=== PATIENT | male | born 2000 | race Hispanic/Latino ===

== ENCOUNTER 2024-11-08 19:04 | Emergency (ER) | payer SELFPAY ==
[~2024-11-08] VITALS: Ht 175.3 cm; Wt 136.1 kg
[2024-11-08 20:09] VITALS: PULSE 85; RESP 20; TEMP 98.5; O2SAT 100
[2024-11-08] MEDS: HYDROCODONE/APAP 5MG-325MG TAB PO ONE (21:07)
[2024-11-08] MEDS ORDERED: AMOXICILLIN500 MG PO (21:11)
== END 2024-11-08 21:18 | disposition home or self-care (01) ==
LOC: ER 20:57
DX: K08.89 Other specified disorders of teeth and supporting structures (principal); K04.7 Periapical abscess without sinus
CPT/HCPCS: 99283